=== PATIENT | male | born 2005 | race Caucasian/White ===

== ENCOUNTER 2025-01-28 10:43 | Emergency (ER) | payer BC, SELFPAY ==
[2025-01-28 10:47] VITALS: BP 125/79
--- NOTE | 2025-01-28 11:00 | ED.GENMED ---
History of Present Illness
General
Chief Complaint: Chest Pain
Time Seen by Provider: 01/28/25 11:00
History of Present Illness
History of Present Illness:
PAST MEDICAL HISTORY AND REVIEW OF OLD RECORDS
- The patient has a history of asthma, ADHD, Tourette's. I reviewed records, the patient was seen here in 2019 related to a strain in the left groin.
Note:
CHIEF COMPLAINT(S)
Sharp, persistent pain and difficulty breathing.
HISTORY OF PRESENT ILLNESS
The patient is a 19-year-old male who presented with concerns of a very sharp and persistent pain that interfered with sleep last night. The pain was described as mild but consistent and is not relieved by changes in position or lying down. The
patient reports slight shortness of breath, describing difficulty in achieving a full deep breath without effort. The patient explicitly mentioned a sharp pain during deep breathing and that any movement or changes in body position exacerbate the
pain. No history of blood clots was noted, and the patient has not yet taken any analgesics, as he initially suspected a muscular issue.
ADDITIONAL HISTORY OBTAINED FROM SOURCES OTHER THAN THE PATIENT
Per the patients family member, there is a familial history of bipolar disorder, and the patient has not been compliant with medication recently, although he did not specify which medications. The family member mentioned episodes of behavioral
outbursts.
PLAN
The plan includes initiating an intravenous line and administering Toradol, a non-narcotic anti-inflammatory medication, to manage the pain. Diagnostic imaging (possibly an X-ray) and blood work are to be performed. The healthcare team will reassess
once initial interventions are completed.
PHYSICAL EXAM
- General: Well appearing in no distress, appears fairly comfortable
- HEENT: Moist oral mucosa
- Cardiovascular: No murmurs, normal heart rate, regular rhythm, some mild left-sided chest wall tenderness
- Pulmonary: No respiratory distress, breath sounds are clear and equal
- Abdomen: Soft with no peritoneal signs, no tenderness
- Neurologic: Excellent strength all extremities, no coordination deficits
- Psychiatric: Appropriate mental status, normal insight and judgement
- Extremities: Nontender, no edema, moves all extremities equally
- Skin: No rash, no lesions
DIFFERENTIAL DIAGNOSIS
The Differential Diagnosis includes, in no particular order and is not limited to:
1. Pleuritic pain
2. Musculoskeletal pain
3. Pneumothorax
4. Pneumonia
5. Pulmonary embolism
6. Costochondritis
7. Rib fracture
8. Psychogenic pain
9. Gastroesophageal reflux disease
10. Anxiety-related hyperventilation
RADIOLOGY
- Chest x-ray shows no acute abnormality
EKG
- Sinus 61, normal axis, no acute ST abnormality
LABS
- CBC and chemistries unremarkable, unremarkable D-dimer and troponin
UPDATE
- The patient was given Toradol
SUMMARY OF ENCOUNTER
The patient, a 19-year-old male, was seen in the emergency department due to sharp, persistent chest pain and difficulty breathing. Upon evaluation, the patients chest X-ray was found to be normal, showing no signs of blood clot or heart attack. The
patient reported slight shortness of breath and difficulty in achieving a full deep breath. Toradol (ketorolac) was considered to be administered intravenously for pain management. It was suggested to continue with udbg-gkp-xmzsaug ibuprofen for
inflammation reduction once at home. The patients compliance with prescribed medications for a familial history of bipolar disorder was noted. The patient reportedly has medications at home, but it was unclear if they were .
PLAN
The plan includes advising the patient to take afrr-csr-sddrsei ibuprofen three times a day to manage inflammation and pain. Additionally, checking the current supply of prescribed medications, such as Lamotrigine (Lamictal) and Fluoxetine (Prozac),
for bipolar disorder and resuming them if they are not . The patient is to be monitored and possibly contact their family to assess current medication status or obtain new prescriptions if necessary.
INDEPENDENT REVIEW OF LABS AND INTERPRETATION OF TESTS
My independent review of the chest X-ray indicates no abnormalities such as blood clots or signs of a heart attack.
MEDICATION RECONCILIATION
1. Mhij-ifh-ykevkft ibuprofen recommended for pain and inflammation management.
2. The patient has a prior prescription for Lamotrigine and Fluoxetine, which may need to be resumed after verifying expiration.
MEDICAL DECISION MAKING
- Complexity of Data Reviewed: Family history of bipolar disorder affecting care. Differential diagnosis included pleuritic pain, musculoskeletal pain, pneumothorax, pneumonia, pulmonary embolism, costochondritis, rib fracture, psychogenic pain,
gastroesophageal reflux disease, and anxiety-related hyperventilation.
- Data:
Category 1
Non-emergency department records were not available for review.
Category 2
Clinical information was obtained from an independent historian concerning the familys history of bipolar disorder and the patients non-compliance with medication.
Category 3
There was ongoing discussion with pharmacy staff to track down the previous medications prescribed to the patient.
-Risk:
Prescription medication was prescribed (Lamotrigine and Fluoxetine) to address the mental health condition.
DIAGNOSIS
1. Pleuritic pain (ICD-10: R07.1)
2. Bipolar disorder, unspecified (ICD-10: F31.9)
3. Noncompliance with medication regimen (ICD-10: Z91.130)
Past History
Social History
Tobacco: Non-smoker
Alcohol: None
Drug: None
Phy Exam
Physical Exam
Physical Exam:
See HPI
Scores
Heart Score for Chest Pain Patients
STEMI patient?: Not applicable
Course
Orders/Labs/Results
Orders:
Orders
01/28/25 10:52
Electrocardiogram (*1) Urgent
Reason for Study: Chest Pain
EKG- Treatment ONCE
01/28/25 11:07
CR Chest - 2 Views Urgent
Comment:
Reason For Exam: left pain
01/28/25 11:14
Ketorolac [Toradol] 15 mg IV NOW STA
01/28/25 11:31
CMP [Comprehensive Metabolic Panel] Urgent
Complete Blood Count/With Diff Urgent
D-Dimer Urgent
Troponin I Urgent
01/28/25 12:16
Crisis Consult Urgent
Reason for Consult: depression
Abnormal Lab Results
01/28/25
11:31
RBC 4.21 L 10^6/uL
(4.70-6.10)
MCH 33.3 H pg
(27.0-31.0)
MPV 10.5 H fL
(7.4-10.4)
Monocytes % 11.1 H %
(1.7-9.3)
Chloride 110 H mmol/L
(98-107)
Glucose 102 H mg/dl
(70-99)
Albumin 5.5 H g/dl
(3.5-5.0)
01/28/25 11:31
01/28/25 11:31
Vital Signs
Initial and Last Documented VS:
Initial Vital Signs
Temp Pulse Resp BP Pulse Ox
36.3 C 75 18 125/79 100
01/28/25 10:47 01/28/25 10:47 01/28/25 10:47 01/28/25 10:47 01/28/25 10:47
Last Documented Vital Signs
Temp Pulse Resp BP Pulse Ox
36.3 C 68 20 129/86 99
01/28/25 10:47 01/28/25 14:20 01/28/25 14:20 01/28/25 12:07 01/28/25 14:20
*Pulse Oximetry
SaO2: 100
Oxygen Mode of Delivery: Room air
Patient hypoxic: no
*Critical Care Note
Total Time (30-74mins, 75-104mins- exclusive of procedures): Not Applicable
ED Attending Note
-
Portions of this chart may have been created with voice recognition software.� Occasional wrong word or��sound alike� substitutions may have occurred due to the inherent limitations of voice recognition software.
Discharge Plan
Departure
Patient Disposition: Home (Routine Discharge)
Date of Disposition: 01/28/25
Time of Disposition: 14:16
Patient with high blood pressure during this ER visit?: Yes
Discharge Problem:
Pleuritic chest pain
Prescriptions:
No Action
No Current Medications
0
Referrals:
NONE,* [Family Provider, Internal Medicine]
Activity Restrictions/Additional Instructions:
I recommend 3 mfjb-exs-vrtyjfc ibuprofen (Motrin) every 8 hours with food for a few days. Return here if worse. Chest x-ray is clear, there is no sign of heart attack or blood clot in your lung.
Interventions
Interventions:
*Risk Screen - Suicide Last Done: 01/28/25 10:47
*Neglect/Abuse Screening Last Done: 01/28/25 10:47
*ED COVID-19 Vaccine History Last Done: 01/28/25 11:41
ED- Cardiac Assessment Last Done: 01/28/25 11:40
Discharge Date and Time
Print Language: BENINESE
[2025-01-28] MEDS: TORADOL 15 MG IV (11:34)
[2025-01-28 11:44] LABS: Hematocrit 39.4 % (39.0-52.0); Hemoglobin 14.0 g/dL (13.0-18.0); Mean Corp Hgb Conc. 35.5 g/dL (33.0-37.0); Mean Corpuscular Volume 93.6 fL (80.0-94.0); Nucleated Red Blood Cells % 0 % (-); Platelet Count 182 10^3/uL (130-400); Red Cell Dist. Width 11.5 % (11.5-14.5)
[2025-01-28 11:54] LABS: ALT (SGPT) 20 U/L (0-50); AST (SGOT) 22 U/L (17-59); Albumin 5.5 g/dl (3.5-5.0); Alkaline Phosphatase 41 U/L (38-126); Blood Urea Nitrogen 10 mg/dl (9-20); Calcium 9.7 mg/dl (8.4-10.2); Carbon Dioxide 24 mmol/L (22-30); Chloride 110 mmol/L (98-107); Glucose 102 mg/dl (70-99); Potassium 4.6 mmol/L (3.5-5.1); Sodium 142 mmol/L (135-145); Total Protein 7.6 g/dl (6.3-8.2); eGFR > 60.00
[2025-01-28 11:57] LABS: D-Dimer < 0.27 ug/mlFEU (0.00-0.50)
[2025-01-28 12:03] LABS: Troponin I < 0.012 ng/ml
[2025-01-28 12:07] VITALS: BP 129/86
== END 2025-01-28 14:30 | disposition home or self-care (01) ==
LOC: EMR 10:43
PROVIDERS: Physician Assistant; EMERGENCY PHYSICIAN Emergency Medicine
DX: R07.1 Chest pain on breathing (principal); J45.909 Unspecified asthma, uncomplicated; F95.2 Tourette's disorder; F90.9 Attention-deficit hyperactivity disorder, unspecified type; Z91.148 Patient's other noncompliance with medication regimen for other reason; Z81.8 Family history of other mental and behavioral disorders
CPT/HCPCS: 99284; 96374; 71046; 80053; 84484; 85025; 85379; 93005